=== PATIENT | female | born 1940 | race Caucasian/White ===

== ENCOUNTER 2020-04-04 19:29 | Emergency (ER) | payer MEDICARE, MEDICAID, SELFPAY ==
--- NOTE | 2020-04-04 19:31 | XRR_ITS ---
PROCEDURE INFORMATION: Exam: XR Right Knee Exam date and time: 04/04/2020 9:13 PM Age: 79 years old Clinical indication: Pain and injury or trauma; Injury history: Twisted; Initial encounter; Sprain or strain; Patella or knee; Right; Additional info: Injury/pain TECHNIQUE: Imaging protocol: XR Right knee. Views: 3 views. COMPARISON: No relevant prior studies available. FINDINGS: Bones/joints: Normal. Soft tissues: Normal. XR/XR knee RT 3V* [id number] IMPRESSION: No acute findings.
[2020-04-04 19:36] VITALS: BP 177/73; PULSE 71; RESP 14; TEMP 37; O2SAT 97; BMI 27.7
[2020-04-04 21:03] VITALS: PULSE 68
--- NOTE | 2020-04-04 21:16 | XRR_ITS ---
PROCEDURE INFORMATION: Exam: XR Right Femur Exam date and time: 04/04/2020 9:39 PM Age: 79 years old Clinical indication: Pain and injury or trauma; Injury history: Twisting; Initial encounter; Sprain or strain; Hip and thigh or upper leg; Right; Left TECHNIQUE: Imaging protocol: XR Right femur. Views: 2 views. COMPARISON: CR XR knee RT 3V* [id number] 04/04/2020 9:00 PM FINDINGS: Bones/joints: Unremarkable. No acute fracture. Soft tissues: Unremarkable. XR/XR femur RT min 2V* [id number] IMPRESSION: No acute findings.
--- NOTE | 2020-04-04 21:18 | ED_ITS ---
Documented by User: Lenka Acosta MD 04/13/20 19:07 HPI - Extremity Problem General: Chief complaint: Extremity Problem,Nontraumatic Stated complaint: R KNEE POP/PAIN Time Seen by Provider: 04/04/20 21:00 History of Present Illness: HPI Narrative: Patient is an 79 year old female presenting with pain in her right knee. 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 She had severe pain and hasn't been able to weight bear on the leg at all. She thinks it is a little swollen. She crawled into her house and called her granddaughter who brought her to the ED. She has never had any problems with her knees. 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 She takes no medicine - only a vitamin pill for her eyes. She is a smoker and complains that she has not gotten over a bronchitis that she had earlier this year. Complaint: extremity pain and joint paint Onset (ago): hour(s) (3) Pain Consistency: constant Location: right and knee Severity scale (1-10): 8 Quality: sharp and constant Radiation: proximal (to the right hip) Relieving factors: nothing Exacerbating factors: range of motion, weight bearing and walking Associated symptoms: Reports no associated symptoms; Deny fever(s) Review of Systems General: Reports: 10 or more systems reviewed and unremarkable except in HPI and below Const: Denies: fever(s) or chills Resp: Reports: non-productive cough and wheezing; Denies: dyspnea Musc: Reports: joint pain Neuro: Denies: numbness in extremities or weakness in extremities [facility] ED PFSH: Social History Smoking and tobacco status: current every day smoker Physical Exam Const: COMMON NORMALS: no acute distress, average body habitus, patient oriented x3, no limitations, healthy appearing, alert and well nourished Chest: COMMONS NORMALS: normal inspection of the chest Resp: COMMON NORMALS: normal respiratory effort, No retractions, No use of accessory muscles, clear to auscultation bilaterally (trace of wheezing) and percussion normal EFFORT & INSPECTION: Yes able to speak in complete sentences AUSCULTATION: clear to auscultation bilaterally (trace of wheezing) PERCUSSION: percussion normal Cardio: COMMON NORMALS: regular rate, regular rhythm, S1 normal heart sound present, S2 normal heart sound present and No murmurs present (Cardio) RATE: regular rate RHYTHM: regular rhythm HEART SOUNDS: S1 normal heart sound present and S2 normal heart sound present GI: COMMON NORMALS: Normal to inspection, nondistended, normoactive bowel sounds present Back/Pelvis: COMMON NORMALS: thoracic and lumbar spine normal to inspection Extremity: RIGHT LOWER EXTREMITY: Yes hip joint (nontender to palpation - but pain with knee movement), Yes knee joint (mild swelling, no bony tenderness, minimal tenderness in the soft tissue po) Right knee: Yes ROM (painful ROM, radiates to the right hip) and Yes foot & digits LEFT LOWER EXTREMITY: Yes ankle joint (normal) Neuro: COMMON NORMALS: patient oriented x3 SENSORIUM/ORIENTATION: Yes alert Skin: COMMON NORMALS: no rashes or lesions noted GENERAL SKIN EXAM: no rashes or lesions noted Course ED course: Pain unable to weight bear and pain with movement. Tenderness and swelling on the posterior knee. She doesn't think that the knee dislocated, but I have concern about a popliteal artery injury or aneurysm. She denies medical problems - but also says that she doesn't go to the doctor and she smokes and eats everything fried (by her report). She could also have a harris's cyst in the area - or a tendon avulsion or tear. CT A of the lower extremities ordered pending a BUN Creat assessment. Vital Signs: Vital signs: Vital Signs Temperature 98.6 F 04/04/20 19:36 Pulse Rate 68 04/05/20 00:15 Respiratory Rate 18 04/05/20 00:15 Blood Pressure 178/82 04/05/20 00:15 Pulse Oximetry 99 04/05/20 00:15 MDM - Extremity (Nontraumatic) Lab Data: Labs: Lab Results 04/04/20 Range/Units 22:30 BUN 15 (8-23) mg/dL Creatinine 0.6 (0.5-0.9) mg/dL Discharge Plan Discharge Patient Disposition: Left Against Medical Advice Clinical Impression: Internal derangement of knee Condition: Stable Discharge Orders: Discharge Order (Routine); Ordered 04/04/20 Ordered By: Rama Sullivan Referrals: Capri Singh MD [Physician] - 1-3 days Irma Day NP [Primary Care Provider] - Discharge Diet: Advance as tolerated Discharge Activity: Limit activity as instructed Patient Instructions: Knee Pain (ED), Knee Immobilizer (ED) Activity Restrictions/Additional Instructions: You're leaving AGAINST MEDICAL ADVICE and are at risk for or severe permanent disability by doing so. You are more than welcome to return at any time for recheck and for further evaluation and care suture change you change your mind. Use crutches in your knee immobilizer at all times until advised further by Dr. Waters. If you change your mind and would like to return for further evaluation and care you are welcome to return here at any time to do so. Discharge Date/Time: 04/05/20 00:19 Coding Level of Care Code ED [employer] for [employer] Fwd Exam Comprehensive Documented by User: Rama Sullivan 04/05/20 04:08 HPI - Extremity Problem General: Chief complaint: Extremity Problem,Nontraumatic Stated complaint: R KNEE POP/PAIN Time Seen by Provider: 04/04/20 21:00 [facility] ED PFSH: Social History Smoking and tobacco status: current every day smoker Course Vital Signs: Vital signs: Vital Signs Temperature 98.6 F 04/04/20 19:36 Pulse Rate 68 04/05/20 00:15 Respiratory Rate 18 04/05/20 00:15 Blood Pressure 178/82 04/05/20 00:15 Pulse Oximetry 99 04/05/20 00:15 MDM - Extremity (Nontraumatic) MDM Narrative: Medical decision making narrative: The patient is refusing to wait any longer for the results of her CT or otherwise. She wants to go home. I have informed her that I cannot tell her everything is okay until I have all the results of my testing back. She understands this but she still insisted upon leaving. The patient appears to have the capacity make her own decisions and does not show any sign of impairment. I will go ahead and give her discharge instructions for internal knee derangement and a knee immobilizer and crutches. I will call her if her CT scan shows anything significantly abnormal in regards to her knee. 0245 -CT shows various things. There is no acute ischemia though. The patient's x-ray results will be called to her on morning day shift. I will have nursing call to arrange for follow-up with her primary care physician as an outpatient for her pulmonary nodules. Lab Data: Attestation: I reviewed the patient's lab results. Labs: Lab Results 04/04/20 Range/Units 22:30 BUN 15 (8-23) mg/dL Creatinine 0.6 (0.5-0.9) mg/dL Imaging Data^: CTA Abdominal Aorta with Runoff: Radiologist's impression: [address] [address] [address] Scan Report Signed Patient: Gail Molina Unit #: [id number] : 1940 Age/Sex: 79 / F ADM Date: 04/04/20 Loc: ER Room/Bed: Attending Dr: Ordering Provider/Ordering MD: Lenka Acosta MD Date of Service: 04/04/20 Procedure(s): CT angio abd aorta runof 25713 Accession Number(s): [id number] Report Number: [id number] PROCEDURE INFORMATION: Exam: CTA Angiogram of the Abdominal Aorta and Bilateral Lower Extremities (Run-off) With IV Contrast Exam date and time: 04/04/2020 10:04 PM Age: 79 years old Clinical indication: Other: RT knee pain; Additional info: Posterior right knee pain TECHNIQUE: Imaging protocol: CT angiogram of the abdominal aorta, pelvis and bilateral lower extremities with IV iodinated contrast. 3D rendering: MIP and/or 3D reconstructed images were created by the technologist. Radiation optimization: All CT scans at this facility use at least one of these dose optimization techniques: automated exposure control; mA and/or kV adjustment per patient size (includes targeted exams where dose is matched to clinical indication); or iterative reconstruction. Contrast material: VISI; Contrast volume: 95 ml; Contrast route: IV; COMPARISON: No relevant prior studies available. RADIATION DOSE METRICS: Total DLP: 1587.17 mGy-cm FINDINGS: Aorta: Calcifications are seen within the thoracic and abdominal aorta, iliac arteries bilaterally and at the origins of the celiac and superior mesenteric arteries. Celiac trunk and mesenteric arteries: No occlusion or significant stenosis. Renal arteries: No occlusion or significant stenosis. Right iliac arteries: No occlusion or significant stenosis. Right femoral/popliteal arteries: No occlusion or significant stenosis. Right infrapopliteal arteries: No occlusion or significant stenosis. Left iliac arteries: No occlusion or significant stenosis. Left femoral/popliteal arteries: No occlusion or significant stenosis. Left infrapopliteal arteries: No occlusion or significant stenosis. Lungs: There is a 6.4 mm pulmonary nodularity seen in the right middle lobe anteriorly likely representing a benign noncalcified granuloma. Mediastinum: There is a small hiatal hernia. Liver: There is a 4 mm hypoattenuation lesions seen adjacent to the inferior vena cava within the right hepatic lobe and a 12 mm hypoattenuation cystic lesions seen within the left hepatic lobe anteriorly compatible with simple hepatic cysts. Gallbladder and bile ducts: Unremarkable. No calcified stones. No ductal dilation. Pancreas: Unremarkable. No mass. No ductal dilation. Spleen: Normal. No splenomegaly. Adrenals: Normal. No mass. Kidneys and ureters: Normal. No mass. Stomach and bowel: Diverticula are present on the sigmoid colon. There are no inflammatory changes seen to suggest diverticulitis. Appendix: No evidence of appendicitis. Bladder: Unremarkable. No mass. Reproductive: Status post hysterectomy. Intraperitoneal space: Unremarkable. No free air. No significant fluid collection. Lymph nodes: No lymphadenopathy. Bones/joints: No acute fracture. No dislocation. Soft tissues: Unremarkable. CT/CT angio abd aorta runof 48914 IMPRESSION: 1. There are no acute arterial findings. 2. Small hiatal hernia 3. Two simple appearing hepatic cysts, the largest seen in the left hepatic lobe measuring 12 mm. No further workup needed. 4. Diverticulosis of the sigmoid colon without evidence of diverticulitis 5. Right middle lobe 6.4 mm pulmonary nodularity .For patients at low risk (minimal or absent history of smoking and of other known risk factors), recommend CT at 6-12 months, then consider CT at 18-24 months. For patients at high risk (history of smoking or of other known risk factors), recommend CT at 6-12 months, then CT at 18-24 months. (Ney et al., Fleischner Society, 2017) Radiation Dose CTDIVOL = (mGy): DLP = 1587.17 (mGy-cm) Dictated By: John Chung MD Signed By: John Chung MD Signed Date/Time: 04/04/202343 DD/ 41 Discharge Plan Discharge Patient Disposition: Left Against Medical Advice Clinical Impression: Internal derangement of knee Condition: Stable Discharge Orders: Discharge Order (Routine); Ordered 04/04/20 Ordered By: Rama Sullivan Referrals: Capri Singh MD [Physician] - 1-3 days Irma Day NP [Primary Care Provider] - Discharge Diet: Advance as tolerated Discharge Activity: Limit activity as instructed Patient Instructions: Knee Pain (ED), Knee Immobilizer (ED) Activity Restrictions/Additional Instructions: You're leaving AGAINST MEDICAL ADVICE and are at risk for or severe permanent disability by doing so. You are more than welcome to return at any time for recheck and for further evaluation and care suture change you change your mind. Use crutches in your knee immobilizer at all times until advised further by Dr. Waters. If you change your mind and would like to return for further evaluation and care you are welcome to return here at any time to do so. Discharge Date/Time: 04/05/20 00:19 Coding Level of Care Code ED [employer] for [employer] Fwd Exam Comprehensive
--- NOTE | 2020-04-04 21:58 | CTR_ITS ---
PROCEDURE INFORMATION: Exam: CTA Angiogram of the Abdominal Aorta and Bilateral Lower Extremities (Run-off) With IV Contrast Exam date and time: 04/04/2020 10:04 PM Age: 79 years old Clinical indication: Other: RT knee pain; Additional info: Posterior right knee pain TECHNIQUE: Imaging protocol: CT angiogram of the abdominal aorta, pelvis and bilateral lower extremities with IV iodinated contrast. 3D rendering: MIP and/or 3D reconstructed images were created by the technologist. Radiation optimization: All CT scans at this facility use at least one of these dose optimization techniques: automated exposure control; mA and/or kV adjustment per patient size (includes targeted exams where dose is matched to clinical indication); or iterative reconstruction. Contrast material: VISI; Contrast volume: 95 ml; Contrast route: IV; COMPARISON: No relevant prior studies available. RADIATION DOSE METRICS: Total DLP: 1587.17 mGy-cm FINDINGS: Aorta: Calcifications are seen within the thoracic and abdominal aorta, iliac arteries bilaterally and at the origins of the celiac and superior mesenteric arteries. Celiac trunk and mesenteric arteries: No occlusion or significant stenosis. Renal arteries: No occlusion or significant stenosis. Right iliac arteries: No occlusion or significant stenosis. Right femoral/popliteal arteries: No occlusion or significant stenosis. Right infrapopliteal arteries: No occlusion or significant stenosis. Left iliac arteries: No occlusion or significant stenosis. Left femoral/popliteal arteries: No occlusion or significant stenosis. Left infrapopliteal arteries: No occlusion or significant stenosis. Lungs: There is a 6.4 mm pulmonary nodularity seen in the right middle lobe anteriorly likely representing a benign noncalcified granuloma. Mediastinum: There is a small hiatal hernia. Liver: There is a 4 mm hypoattenuation lesions seen adjacent to the inferior vena cava within the right hepatic lobe and a 12 mm hypoattenuation cystic lesions seen within the left hepatic lobe anteriorly compatible with simple hepatic cysts. Gallbladder and bile ducts: Unremarkable. No calcified stones. No ductal dilation. Pancreas: Unremarkable. No mass. No ductal dilation. Spleen: Normal. No splenomegaly. Adrenals: Normal. No mass. Kidneys and ureters: Normal. No mass. Stomach and bowel: Diverticula are present on the sigmoid colon. There are no inflammatory changes seen to suggest diverticulitis. Appendix: No evidence of appendicitis. Bladder: Unremarkable. No mass. Reproductive: Status post hysterectomy. Intraperitoneal space: Unremarkable. No free air. No significant fluid collection. Lymph nodes: No lymphadenopathy. Bones/joints: No acute fracture. No dislocation. Soft tissues: Unremarkable. CT/CT angio abd aorta runof 09578 IMPRESSION: 1. There are no acute arterial findings. 2. Small hiatal hernia 3. Two simple appearing hepatic cysts, the largest seen in the left hepatic lobe measuring 12 mm. No further workup needed. 4. Diverticulosis of the sigmoid colon without evidence of diverticulitis 5. Right middle lobe 6.4 mm pulmonary nodularity .For patients at low risk (minimal or absent history of smoking and of other known risk factors), recommend CT at 6-12 months, then consider CT at 18-24 months. For patients at high risk (history of smoking or of other known risk factors), recommend CT at 6-12 months, then CT at 18-24 months. (Ney et al., Fleischner Society, 2017) Radiation Dose CTDIVOL = (mGy): DLP = 1587.17 (mGy-cm)
[2020-04-04 22:46] LABS: Blood Urea Nitrogen 15 mg/dL (8-23)
[2020-04-04] MEDS: iodixanol 320 mg/mL 100mL Btl IV (23:02)
[2020-04-04 23:23] VITALS: BP 184/67; PULSE 67; RESP 18; O2SAT 97
[2020-04-05 00:15] VITALS: BP 178/82; PULSE 68; RESP 18; O2SAT 99
--- NOTE | 2020-04-06 13:50 | DCPLANNER ---
manager air had message to schedule a follow up appointment for patient with ortho. manager air called the ortho clinic, spoke with Dolores, gave clinic patients information. manager air was told that patients information would be printed and reviewed. Clinic will call pillowcase cleaner and patient with appointment information.
--- NOTE | 2020-04-08 13:12 | DCPLANNER ---
Patient has a follow up appointment scheduled for March at 2:[address] Singh. Clinic will call patient with appointment information.
--- NOTE | 2020-05-07 14:11 | DCPLANNER ---
Appointment scheduled for 04.16.20 with ortho was cancelled.
== END 2020-04-05 00:19 | disposition left against medical advice (07) ==
PROVIDERS: Emergency Medicine; Emergency Provider Emergency Medicine; Family Provider Nurse Practitioner Family; PCP Nurse Practitioner Family
DX: M23.91 Unspecified internal derangement of right knee (principal); Z53.21 Procedure and treatment not carried out due to patient leaving prior to being seen by health care provider; F17.210 Nicotine dependence, cigarettes, uncomplicated
CPT/HCPCS: 12345; 29530; 73552; 73562; 75635; 82565; 84520; 99281; 99283; E0114; Q9967

== ENCOUNTER 2023-04-27 11:45 | Outpatient (CLI) | payer MEDICARE, MEDICAID, SELFPAY ==
[2023-04-27 13:04] LABS: Basophils % 0.2 %; Eosinophils # 0.3 10^3/uL (0.0-0.8); Eosinophils % 5.2 %; Hematocrit 39.8 % (37.0-47.0); Hemoglobin 12.9 g/dL (11.5-15.3); Lymphocytes # 0.9 10^3/uL (0.8-4.8); Lymphocytes % 17.8 %; Mean Corpuscular HGB Conc 32.4 g/dL (30.0-36.0); Mean Corpuscular Hemoglobin 29.3 pg (28.0-34.0); Mean Corpuscular Volume 90.5 fl (81-99); Mean Platelet Volume 10.5 fL (7.4-10.4); Monocytes # 0.5 10^3/uL (0.2-0.9); Monocytes % 9.3 %; Neutrophils # 3.25 10^3/uL (1.8-7.7); Neutrophils % 67.3 %; Nucleated Red Blood Cells % 0 %; Platelet Count 166 10^3/cmm (130-400); Red Cell Distribution Width 12.8 % (12.1-15.1); White Blood Count 4.8 10^3/uL (4.0-10.0)
[2023-04-27 13:20] LABS: Alanine Aminotransferase 13 U/L (0-33); Albumin Level 3.8 g/dL (3.5-5.2); Alkaline Phosphatase 93 U/L (35-105); Anion Gap 13.6 (5-19); Aspartate Amino Transferase 17 U/L (0-32); Blood Urea Nitrogen 9 mg/dL (8-23); Carbon Dioxide 24 mmol/L (22-29); Chloride 102 mmol/L (98-107); Globulin 2.5 g/dL (1.3-4.6); Glucose 86 mg/dL (65-115); Osmolality Calculated 278 mOsm/kg (285-295); Potassium 4.6 mmol/L (3.5-5.1); Sodium 135 mmol/L (136-145); Total Bilirubin 0.2 mg/dL (0.15-1.2); Total Protein 6.3 g/dL (6.6-8.7)
[2023-04-27 14:09] LABS: Hepatitis A Antibody IgM Non-Reactive (Nonreactive); Hepatitis B Core AB, Total Non-Reactive (Nonreactive); Hepatitis B Surface AB 3.5 (11.5-1000); Hepatitis B Surface Antigen Non-Reactive (Nonreactive); Hepatitis C Virus Antibody Non-Reactive (Nonreactive)
[2023-04-27 14:47] LABS: HIV 1 & 2 Antibody Non-Reactive (Non-Reactiv); HIV 1 & 2 Antigen Non-Reactive (Non-Reactiv)
[2023-04-29 13:59] LABS: Quantiferon Mitogen >10.00 IU/mL; Quantiferon Nil 0.02 IU/mL; Quantiferon TB Gold NEGATIVE (NEGATIVE)
== END 2023-04-27 11:46 | disposition home or self-care (01) ==
LOC: LAB 11:58
PROVIDERS: PCP Family Medicine; Visit Provider Dermatology
DX: L40.0 Psoriasis vulgaris (principal); L40.59 Other psoriatic arthropathy; L81.4 Other melanin hyperpigmentation; L82.1 Other seborrheic keratosis; B35.1 Tinea unguium
CPT/HCPCS: 36415; 80053; 85025; 86480; 86705; 86706; 86709; 86803; 87340; 87806; 99204

== ENCOUNTER → 2023-08-03 13:39 | Outpatient (BNVA) | payer MEDICARE, MEDICAID, SELFPAY | PROVIDERS: PCP Family Medicine; Visit Provider Dermatology | DX: L82.1 Other seborrheic keratosis (principal); L40.0 Psoriasis vulgaris; L40.59 Other psoriatic arthropathy; L23.9 Allergic contact dermatitis, unspecified cause; L81.4 Other melanin hyperpigmentation; D48.5 Neoplasm of uncertain behavior of skin; L82.0 Inflamed seborrheic keratosis | CPT/HCPCS: 17110; 99214 ==

== ENCOUNTER → 2023-10-04 08:48 | Outpatient (BNVA) | payer MEDICARE, MEDICAID, SELFPAY | PROVIDERS: PCP Family Medicine; Visit Provider Dermatology | DX: D48.5 Neoplasm of uncertain behavior of skin (principal) | CPT/HCPCS: 11403; 12032 ==

== ENCOUNTER 2024-04-22 08:56 | Outpatient (CLI) | payer MEDICARE, MEDICAID, SELFPAY ==
[2024-04-24 18:20] LABS: Quantiferon Mitogen 9.16 IU/mL; Quantiferon Nil 0.03 IU/mL; Quantiferon TB Gold NEGATIVE (NEGATIVE)
== END 2024-04-22 08:57 | disposition home or self-care (01) ==
LOC: LAB 08:58
PROVIDERS: PCP Family Medicine; Visit Provider Nurse Practitioner Family
DX: L40.0 Psoriasis vulgaris (principal)
CPT/HCPCS: 36415; 86480

== ENCOUNTER → 2024-09-17 09:30 | Outpatient (BNVA) | payer MEDICARE, MEDICAID, SELFPAY | PROVIDERS: PCP Family Medicine; Visit Provider Nurse Practitioner Family | DX: F17.200 Nicotine dependence, unspecified, uncomplicated (principal); L57.0 Actinic keratosis; L82.0 Inflamed seborrheic keratosis; L81.4 Other melanin hyperpigmentation | CPT/HCPCS: 17000; 17110; 99213 ==

== ENCOUNTER → 2025-02-11 13:28 | Outpatient (BNVA) | payer MEDICARE, MEDICAID, SELFPAY | PROVIDERS: PCP Family Medicine; Visit Provider Nurse Practitioner Family | DX: L40.0 Psoriasis vulgaris (principal); L82.1 Other seborrheic keratosis; L81.4 Other melanin hyperpigmentation; L57.8 Other skin changes due to chronic exposure to nonionizing radiation | CPT/HCPCS: 99213 ==

== ENCOUNTER → 2025-08-14 09:18 | Outpatient (BNVA) | payer MEDICARE, MEDICAID, SELFPAY | PROVIDERS: PCP Family Medicine; Visit Provider Nurse Practitioner Family | DX: L40.0 Psoriasis vulgaris (principal); Z79.899 Other long term (current) drug therapy; L82.1 Other seborrheic keratosis; L81.4 Other melanin hyperpigmentation; L57.8 Other skin changes due to chronic exposure to nonionizing radiation; L82.0 Inflamed seborrheic keratosis; L29.89 Other pruritus; L53.8 Other specified erythematous conditions; Z78.9 Other specified health status; L57.0 Actinic keratosis | CPT/HCPCS: 17000; 17110; 99214 ==

== ENCOUNTER 2025-10-10 09:11 | Outpatient (CLI) | payer MEDICARE, MEDICAID, SELFPAY | END 2025-10-10 09:12 | disposition home or self-care (01) | PROVIDERS: PCP Nurse Practitioner Family; Visit Provider Nurse Practitioner Family | DX: L40.0 Psoriasis vulgaris (principal); Z79.899 Other long term (current) drug therapy | CPT/HCPCS: 36415; 86480 ==